=== PATIENT | male | born 1945 | race Hispanic/Latino ===

== ENCOUNTER 2022-01-26 20:23 | Observation (INO) | payer OTHER ==
[~2022-01-26] VITALS: Ht 172.7 cm; Wt 90.5 kg
[2022-01-26 21:10] VITALS: BP_SYST 144; BP_SYST 148; BP_DIAS 77; BP_DIAS 85
[2022-01-26] MEDS ORDERED: BENA40TA92 PO (22:21)
[2022-01-26] MEDS ORDERED: AMLO-257 PO (22:21)
[2022-01-26] MEDS ORDERED: ATOR-2 PO (22:21)
[2022-01-26] MEDS ORDERED: CARV25TA PO (22:21)
[2022-01-26] MEDS ORDERED: GABA300T25 PO (22:26)
[2022-01-26] MEDS ORDERED: METF-444 PO (22:26)
[2022-01-26] MEDS ORDERED: TAMS-1 PO (22:26)
[2022-01-26] MEDS ORDERED: HYDR12.54 PO (22:26)
[2022-01-26] MEDS ORDERED: HYDRALAZINE 20MG/ML VIAL IV PRN (23:00)
[2022-01-26] MEDS ORDERED: DIPHENHYDRAMINE HCL 25 MG CAPSULE PO PRN (23:00)
[2022-01-26] MEDS ORDERED: GUAIFENESIN-DM 200/20 MG 10 ML PO PRN (23:00)
[2022-01-26] MEDS ORDERED: NITROGLYCERIN 0.4 MG SL TAB SL PRN (23:00)
[2022-01-26] MEDS ORDERED: ACETAMINOPHEN 325 MG TAB PO PRN (23:00)
[2022-01-26] MEDS ORDERED: ONDANSETRON 4MG INJ IV PRN (23:00)
[2022-01-26] MEDS ORDERED: ZOLPIDEM TARTRATE 5 MG TAB PO PRN (23:00)
[2022-01-26] MEDS ORDERED: MAG/ALUM/SIMETH 30 ML UDCUP PO PRN (23:00)
[2022-01-26] MEDS ORDERED: 0.9%NACL 1000ML 1,000 ML IV SCH (23:00)
[2022-01-26] MEDS ORDERED: MORPHINE 2 MG SYG IV PRN (23:00)
[2022-01-26 23:10] LABS: CREATININE 0.6 mg/dL (0.5-1.5); POTASSIUM 3.7 mmol/L (3.5-5.1)
[2022-01-27] VITALS: BP 149/77
[2022-01-27] MEDS ORDERED: GLUCAGON 1MG KIT 1 MG ML IM PRN (02:30)
[2022-01-27] MEDS ORDERED: DEXTROSE 50%-WATER 50 ML DISP.SYRIN IV PRN (02:30)
[2022-01-27 02:47] LABS: HEMOGLOBIN A1C 6.7 % (4.0-6.0)
[2022-01-27 04:00] VITALS: BP 158/91
[2022-01-27] MEDS ORDERED: METRONIDAZOLE 500MG/100ML BAG 100 ML IVPB SCH (06:00)
[2022-01-27] MEDS: INSULIN HUMULIN R 100 UNIT/ML 3ML SQ SCH ×2 (06:36→11:24)
[2022-01-27 07:05] VITALS: BP 166/81
[2022-01-27 08:54] LABS: HEMATOCRIT 38.2 % (42-54); MEAN CORPUSCULAR HEMOGLOBIN 30.7 pg (27.0-33.0); MEAN CORPUSCULAR HGB CONC 36.1 g/dL (32.0-36.0); MEAN CORPUSCULAR VOLUME 84.9 fL (79-99); PLATELET COUNT (AUTO) 139 K/uL (130-400); RED CELL DISTRIBUTION WIDTH 14.9 % (11.0-15.5); WHITE BLOOD COUNT (AUTO) 4.9 K/uL (4.8-10.8)
[2022-01-27 08:58] LABS: CREATININE 0.7 mg/dL (0.5-1.5); POTASSIUM 3.5 mmol/L (3.5-5.1)
[2022-01-27] MEDS ORDERED: GABAPENTIN 300 MG CAPSULE PO SCH (09:00)
[2022-01-27] MEDS ORDERED: FAMOTIDINE 20MG VIAL IV SCH (09:00)
[2022-01-27] MEDS ORDERED: TAMSULOSIN HCL 0.4 MG CAP.ER.24H PO SCH (09:00)
[2022-01-27] MEDS ORDERED: HYDROCHLOROTHIAZIDE 25 MG TABLET PO SCH (09:00)
[2022-01-27] MEDS ORDERED: BENAZEPRIL HCL 10 MG TABLET PO SCH (09:00)
[2022-01-27] MEDS ORDERED: ENOXAPARIN SODIUM 40 MG/0.4 ML SYRINGE SQ SCH (09:00)
[2022-01-27] MEDS ORDERED: CARVEDILOL 25 MG TABLET PO SCH (09:00)
[2022-01-27] MEDS ORDERED: AMLODIPINE 5 MG TAB PO SCH (09:00)
[2022-01-27 10:32] LABS: APPEARANCE,URINE CLEAR (CLEAR); BILIRUBIN,URINE NEGATIVE (NEGATIVE); COLOR,URINE YELLOW (YELLOW); GLUCOSE, URINE (UA) NEGATIVE (NEGATIVE); KETONES,URINE NEGATIVE (NEGATIVE); LEUKOCYTE ESTERASE ,URINE NEGATIVE (NEGATIVE); NITRATE,URINE NEGATIVE (NEGATIVE); OCCULT BLOOD,URINE NEGATIVE (NEGATIVE); PH,URINE 7.5 (5.0-8.0); PROTEIN,URINE NEGATIVE (NEGATIVE)
[2022-01-27 10:55] VITALS: BP 144/81
[2022-01-27] MEDS ORDERED: ATORVASTATIN 40 MG TABLET PO SCH (21:00)
== END 2022-01-27 14:00 | disposition home or self-care (01) ==
LOC: 3CH 21:23 → INTOOBSV 21:23 → OBSVTOIN 21:23
PROVIDERS: ADMIT Internal Medicine; ATTEND Internal Medicine
DX: K52.9 Noninfective gastroenteritis and colitis, unspecified (principal); Z20.822 Contact with and (suspected) exposure to COVID-19; E86.0 Dehydration; E87.1 Hypo-osmolality and hyponatremia; E11.9 Type 2 diabetes mellitus without complications; I10 Essential (primary) hypertension; E78.5 Hyperlipidemia, unspecified; N40.0 Benign prostatic hyperplasia without lower urinary tract symptoms; M19.90 Unspecified osteoarthritis, unspecified site; I25.10 Atherosclerotic heart disease of native coronary artery without angina pectoris; Z79.899 Other long term (current) drug therapy; Z95.5 Presence of coronary angioplasty implant and graft
CPT/HCPCS: 36415 ×2; 80048 ×2; 81003; 82948 ×2; 83036; 83605; 84145; 85027; 87507; 87635; 96361 ×2; 96365; 96375; G0378 ×15; J1650; J3490 ×2; J7030